=== PATIENT | male | born 1965 | race Caucasian/White ===

== ENCOUNTER 2020-12-27 17:51 | Outpatient (CLI) | payer OTHER, SELFPAY ==
--- NOTE | ~2020-12-27 | XR_ITS ---
EXAMINATION: XR chest 2V DATE: 12/27/2020 18:10 INDICATION: Left chest pain. TECHNIQUE: Frontal and lateral views of the chest were obtained. COMPARISON: None. FINDINGS: The chest demonstrates clear lungs without pneumonia, pleural effusion, or pneumothorax. Th e heart size is normal. There are changes of anterior fusion procedures in cervical spine. IMPRESSION: 1. No acute cardiopulmonary disease. Reviewed, dictated and finalized at location A.
== END 2020-12-27 17:52 | disposition home or self-care (01) ==
PROVIDERS: PCP Family Medicine; Visit Provider Family Medicine
DX: R07.89 Other chest pain (principal)
CPT/HCPCS: 71046

== ENCOUNTER 2022-05-23 09:58 | Emergency (ER) | payer OTHER, SELFPAY ==
[2022-05-23 10:20] VITALS: BP 135/92; PULSE 81; RESP 16; TEMP 37; O2SAT 99
--- NOTE | 2022-05-23 11:04 | ED.GENADULT ---
HPI - General Adult General Chief complaint: Eye Problems Stated complaint: rt pink eye Time Seen by Provider: 05/23/22 11:04 Source: patient Mode of arrival: ambulatory Limitations: no limitations History of Present Illness HPI narrative: 57-year-old male presented for complaint of right eye redness, irritation, and large amount of yellow drainage over the last 5 days. He endorses his daughter also has similar symptoms, was diagnosed with viral pinkeye. He states his symptoms have not improved after hers did. He denies vision changes, photophobia, foreign body sensation. does not wear contacts. Related Data Allergies Allergy/AdvReac Type Severity Reaction Status Date / Time Latex, Natural Rubber AdvReac painful Verified 05/23/22 11:05 Review of Systems Review of Systems: CONSTITUTIONAL: Denies body aches, fever, chills EYES:per HPI ENT: Denies rhinorrhea, congestion, sore throat, or otalgia. CARDIOVASCULAR: Denies chest pain, palpitations RESPIRATORY: Denies cough or dyspnea. GASTROINTESTINAL: Denies abdominal pain, nausea, vomiting, or diarrhea. SKIN: Denies rash, itching, or wounds. MUSCULOSKELETAL: Denies back pain, joint pain, or myalgia. NEUROLOGIC: Denies headache, numbness, tingling, or weakness. All systems reviewed & are unremarkable except as noted in HPI and below PMFSH Family History Family History Grandparent Diabetes mellitus Cerebrovascular accident Father Hypertension Family history of coronary artery disease Sibling Hypertension Acute myocardial infarction Family history of coronary artery disease Social History Social History Smoking status: Never smoker Alcohol intake: current Lack of Transportation: No Lack of Food: Never True Current Housing: I Have Housing Concerned About Future Housing: No Difficulty Paying Gas/Electric Bills: No Difficulty Paying for Meds: No Currently Unemployed: No Education: Bachelor's Degree Difficulty w/ Childcare or Family Care: No Comments At time of signature, I have reviewed and agree with nursing past medical, surgical, social and family history unless otherwise noted. Please see nursing chart for further information. There is no relevant family history pertinent to the presenting complaint Exam Narrative: GENERAL: Well-appearing HEAD: Normocephalic, atraumatic. EYES: Right conjunctival injection, mild right upper eye lid swelling. PERRLA, EOMI. Lid eversion showed no fb. ENT: Mucous membranes pink and moist. No rhinorrhea. TMs normal bilaterally. CHEST: Clear to auscultation. HEART: Regular rate and rhythm. ABDOMEN: Soft, nontender, nondistended SKIN: Warm, dry, no rash. Normal skin turgor. NEURO: No focal deficits. Alert and oriented x3 PSYCH: Normal affect. Course Course Emergency Course: Patient is aware of diagnosis, understands and agrees to treatment plan. Anticipatory guidance given. Patient agrees to follow-up as directed and is aware of reasons to seek care at the emergency department. Portions of this record may have been created with voice recognition software Level of Care: Express Care Visit Vital Signs Vital signs: Vital Signs Temperature 98.6 F 05/23/22 10:20 Pulse Rate 81 05/23/22 10:20 Respiratory Rate 16 05/23/22 10:20 Blood Pressure 135/92 H 05/23/22 10:20 Pulse Oximetry 99 05/23/22 10:20 Temperature 98.6 F 05/23/22 10:20 Pulse Rate 81 05/23/22 10:20 Respiratory Rate 16 05/23/22 10:20 Blood Pressure 135/92 H 05/23/22 10:20 Pulse Oximetry 99 05/23/22 10:20 Medical Decision Making MDM Narrative Medical decision making narrative: Advised supportive measures and signs/symptoms to go to the ER. Pt is appropriate for outpt treatment and f/u. Differential Diagnosis Differential Diagnosis: allergic reaction, urticaria, angioedema,
== END 2022-05-23 11:18 | disposition home or self-care (01) ==
PROVIDERS: Emergency Provider Nurse Practitioner Family; PCP Family Medicine
DX: H10.9 Unspecified conjunctivitis (principal)
CPT/HCPCS: 99213; G0463

== ENCOUNTER 2023-01-08 08:16 | Outpatient (CLI) | payer OTHER, SELFPAY ==
[2023-01-08 18:27] LABS: Alanine Aminotransferase 18 U/L (6-50); Albumin Level 3.9 g/dL (3.5-5.1); Alkaline Phosphatase 102 U/L (38-126); Anion Gap 8 mmol/L (8-16); Aspartate Amino Transferase 31 U/L (17-59); Bilirubin,Total 0.8 mg/dL (0.2-1.3); Blood Urea Nitrogen 16 mg/dL (9-20); Calcium 8.9 mg/dL (8.4-10.2); Carbon Dioxide 28 mmol/L (22-30); Chloride 103 mmol/L (98-107); Cholesterol 155 mg/dL (0-200); Estimated Glomerular Filt Rate > 60; Glucose 86 mg/dL (65-110); HDL Direct 37 mg/dL; Potassium 4.2 mmol/L (3.4-5.0); Sodium 139 mmol/L (137-145); Triglycerides 98 mg/dL (<150)
[2023-01-08 18:38] LABS: LDL Cholesterol Direct 100 mg/dL
[2023-01-08 18:56] LABS: Prostate Specific Antigen 5.1 ng/mL (< OR = 4.0)
== END 2023-01-08 08:17 | disposition home or self-care (01) ==
LOC: ANHGOSHLAB 08:18
PROVIDERS: PCP Family Medicine; Visit Provider Family Medicine
DX: E66.9 Obesity, unspecified (principal); E78.2 Mixed hyperlipidemia; I10 Essential (primary) hypertension; Z12.5 Encounter for screening for malignant neoplasm of prostate; Z68.33 Body mass index [BMI] 33.0-33.9, adult; Z79.899 Other long term (current) drug therapy
CPT/HCPCS: 36415; 80053; 80061; 84153; G0103

== ENCOUNTER 2023-01-18 08:18 | Outpatient (CLI) | payer OTHER, SELFPAY ==
[2023-01-18 19:17] LABS: Prostate Specific Antigen 3.9 ng/mL (< OR = 4.0)
== END 2023-01-18 08:19 | disposition home or self-care (01) ==
LOC: ANHGOSHLAB 08:19
PROVIDERS: PCP Family Medicine; Visit Provider Family Medicine
DX: R97.20 Elevated prostate specific antigen [PSA] (principal)
CPT/HCPCS: 36415; 84153

== ENCOUNTER 2023-03-22 08:33 | Outpatient (CLI) | payer OTHER, SELFPAY ==
[2023-03-24 19:41] LABS: PSA, Free 0.74 ng/mL; PSA, Total 3.1 ng/mL (<=4.0); Percent Free Prostate Spec Ag 24 % (>25)
== END 2023-03-22 08:34 | disposition home or self-care (01) ==
LOC: ANHGOSHLAB 08:34
PROVIDERS: PCP Family Medicine; Visit Provider Family Medicine
DX: R97.20 Elevated prostate specific antigen [PSA] (principal); E78.2 Mixed hyperlipidemia; E66.9 Obesity, unspecified; I10 Essential (primary) hypertension
CPT/HCPCS: 36415; 84153; 84154

== ENCOUNTER 2023-07-13 07:54 | Outpatient (CLI) | payer OTHER, SELFPAY ==
[2023-07-13 14:19] LABS: Hematocrit 48.7 % (42.0-52.0); Mean Corpuscular HGB Conc 30.8 g/dl (32-36); Mean Corpuscular Hemoglobin 27.6 pg (26-34); Mean Corpuscular Volume 89.5 fl (80-100); Mean Platelet Volume 9.7 fl (7.4-10.4); Platelet Count Result 321 k/mm3 (150-375); Red Blood Count 5.44 M/mm3 (4.6-6.20); Red Cell Distribution Width 14.3 % (11.5-14.5); White Blood Count 4.3 K/mm3 (4.5-10.0)
[2023-07-13 14:53] LABS: Alanine Aminotransferase 19 U/L (6-50); Albumin Level 3.7 g/dL (3.5-5.1); Alkaline Phosphatase 93 U/L (38-126); Anion Gap 2 mmol/L (8-16); Aspartate Amino Transferase 50 U/L (17-59); Bilirubin,Total 0.6 mg/dL (0.2-1.3); Blood Urea Nitrogen 20 mg/dL (9-20); Carbon Dioxide 30 mmol/L (22-30); Chloride 106 mmol/L (98-107); Cholesterol 169 mg/dL (0-200); Estimated Glomerular Filt Rate > 60; Glucose 70 mg/dL (65-110); HDL Direct 37 mg/dL; Potassium 4.3 mmol/L (3.4-5.0); Sodium 138 mmol/L (137-145); Triglycerides 105 mg/dL (<150)
[2023-07-13 15:03] LABS: LDL Cholesterol Direct 100 mg/dL
[2023-07-15 09:24] LABS: PSA, Free 0.65 ng/mL; PSA, Total 3.2 ng/mL (<=4.0); Percent Free Prostate Spec Ag 20 % (>25)
== END 2023-07-13 07:55 | disposition home or self-care (01) ==
PROVIDERS: PCP Family Medicine; Visit Provider Family Medicine
DX: E78.2 Mixed hyperlipidemia (principal); R97.20 Elevated prostate specific antigen [PSA]; I10 Essential (primary) hypertension; E66.9 Obesity, unspecified
CPT/HCPCS: 36415; 80053; 80061; 84153; 84154; 84443; 85027

== ENCOUNTER 2023-07-29 09:51 | Outpatient (CLI) | payer OTHER, SELFPAY ==
--- NOTE | 2023-07-29 10:08 | EST_ITS ---
Patient Info Name: Hebert Eason Age: 58 years : 1965 Gender: Male Ht: 69 in Wt: 218 lbs BSA: 2.23 m2 HR: 64 bpm BP: 132 / 86 mmHg Heart Rhythm: Sinus Rhythm Exam Date: 07/29/2023 10:21 AM Exam Location: Echo Lab Patient Status: Outpatient Admit Date: 07/29/2023 Staff Ordering Physician: Denae Chirinos Attending Provider: Denae Chirinos Exercise Technologist: Keesha Joshua CT Exercise Physician: Yonas Morrissey DO Exam Type: CA stress test treadmill Study Info Indications R07.89 - Other chest pain A treadmill exercise stress test was performed. Summary 1. 1. Negative Agapito exercise stress test for ischemic ST changes by ECG criteria. 2. 2. Good functional capacity, achieving 10 METs of workload. 3. 3. Appropriate HR response to exercise. 4. 4. Appropriate HR recovery at 1 minute post exercise. 5. 5. No imaging with stress testing. 6. 6. Patient informed of the above results. Protocol: Agapito Stress ECG Details Stage: REST Duration (min): 1 min : 13 sec Speed (mph): 0.0 Grade (%): 0 HR (bpm): 67 SBP (mmHg): 132 DBP (mmHg): 86 METS: --- Stage: REST Duration (min): 14 min : 34 sec Speed (mph): 0.0 Grade (%): 0 HR (bpm): 68 SBP (mmHg): 132 DBP (mmHg): 86 METS: --- Stage: STAGE 1 Duration (min): 1 min : 0 sec Speed (mph): 1.7 Grade (%): 10 HR (bpm): 94 SBP (mmHg): 132 DBP (mmHg): 86 METS: --- Stage: STAGE 1 Duration (min): 2 min : 0 sec Speed (mph): 1.7 Grade (%): 10 HR (bpm): 100 SBP (mmHg): 132 DBP (mmHg): 86 METS: --- Stage: STAGE 1 Duration (min): 3 min : 0 sec Speed (mph): 1.7 Grade (%): 10 HR (bpm): 96 SBP (mmHg): 182 DBP (mmHg): 86 METS: --- Stage: STAGE 2 Duration (min): 1 min : 0 sec Speed (mph): 2.5 Grade (%): 12 HR (bpm): 107 SBP (mmHg): 148 DBP (mmHg): 85 METS: --- Stage: STAGE 2 Duration (min): 2 min : 0 sec Speed (mph): 2.5 Grade (%): 12 HR (bpm): 111 SBP (mmHg): 152 DBP (mmHg): 83 METS: --- Stage: STAGE 2 Duration (min): 3 min : 0 sec Speed (mph): 2.5 Grade (%): 12 HR (bpm): 115 SBP (mmHg): 152 DBP (mmHg): 83 METS: --- Stage: STAGE 3 Duration (min): 1 min : 0 sec Speed (mph): 3.4 Grade (%): 14 HR (bpm): 126 SBP (mmHg): 138 DBP (mmHg): 84 METS: --- Stage: STAGE 3 Duration (min): 2 min : 0 sec Speed (mph): 3.4 Grade (%): 14 HR (bpm): 132 SBP (mmHg): 138 DBP (mmHg): 84 METS: --- Stage: STAGE 3 Duration (min): 3 min : 0 sec Speed (mph): 3.4 Grade (%): 14 HR (bpm): 138 SBP (mmHg): 167 DBP (mmHg): 87 METS: --- Stage: STAGE 4 Duration (min): 0 min : 5 sec Speed (mph): 4.2 Grade (%): 16 HR (bpm): 139 SBP (mmHg): 167 DBP (mmHg): 87 METS: --- Stage: RECOVERY Duration (min): 0 min : 55 sec Speed (mph): 0.0 Grade (%): 0 HR (bpm): 112 SBP (mmHg): 167 DBP (mmHg): 87 METS:
== END 2023-07-29 09:52 | disposition home or self-care (01) ==
LOC: ANHCARD 09:52
PROVIDERS: PCP Family Medicine; Visit Provider Nurse Practitioner
DX: R07.9 Chest pain, unspecified (principal)
CPT/HCPCS: 93017

== ENCOUNTER 2023-08-02 10:56 | Outpatient (CLI) | payer OTHER, SELFPAY ==
--- NOTE | ~2023-08-02 | CT_ITS ---
EXAMINATION: CT sinus wo con DATE: 08/02/2023 11:14 INDICATION: Chronic sinusitis, unspecified. TECHNIQUE: Computed tomography (CT) of the paranasal sinuses was performed without intravenous contra st. Iterative reconstruction technique was employed. The dose-length product was 311.14 mGy-cm. COMPARISON: None FINDINGS: There is mild mucosal thickening in left frontal sinus. There is near complete opacificatio n of right frontal recess. There is moderate mucosal thickening in the ethmoid sinuses and mild mucos al thickening in the maxillary and sphenoid sinuses. There is rightward deviation of the nasal septum . There are bilateral Luiz cells. There is narrowing of the ostiomeatal units, which remain patent. IMPRESSION: 1. Mucosal thickening in the paranasal sinuses. 2. Rightward deviation of the nasal septum. Reviewed, dictated and finalized at location A.
== END 2023-08-02 10:57 | disposition home or self-care (01) ==
PROVIDERS: PCP Family Medicine; Visit Provider Otolaryngology
DX: J34.2 Deviated nasal septum (principal); J34.89 Other specified disorders of nose and nasal sinuses
CPT/HCPCS: 70486

== ENCOUNTER 2023-10-12 00:38 | Day surgery (SDC) | payer OTHER, SELFPAY ==
[2023-10-04 10:38] VITALS: BMI 33.0
--- NOTE | 2023-10-04 11:10 | PC.NURSE ---
Report to the Outpatient Waiting Room, entrance under the green pavilion located off [facility], at time _0645 on date __10/12/23 . Planned Procedure Time: _0845 . Time changes happen often and if your time is changed the preop area will call you the afternoon before. - You and your visitor will be asked to self-screen and do not enter if you have any COVID symptoms. - A mask is optional within the hospital at this time. Patients may have clear liquids (water, carbonated beverages, clear teas, apple juice) until 3 hours prior to surgery with a maximum of 20 ounces. - No food from midnight until time of surgery - Infants may have breast milk until 4 hours before surgery, infant formula 6 hours prior to surgery. - Children will be allowed to drink immediately following surgery. If applicable, please bring a bottle or sippy cup to assist with drinking. Juice, water, soda, and popsicles are readily available. For infants on formula, please bring formula the day of surgery. Pacifiers are allowed. Take the following medications with a SIP of water the morning of surgery: __None DO NOT STOP ANY OF YOUR OTHER PRESCRIPTION MEDICATIONS PRIOR TO SURGERY ?EXCEPT THE FOLLOWING Medications to discontinue per physician _N/A Date to take last dose__N/A Please no make-up, nail angolan, hairspray, perfume, deodorant, or body powder the day of surgery. No jewelry (including any body piercings) or valuables the day of surgery, leave them at home. Please take a shower or bath the night before, or the morning of, surgery with an antibacterial soap. Wear comfortable, loose fitting clothing. Children are encouraged to wear pajamas. - Jewelry must be removed prior to entering the operating room. Rings and piercings that are not removed may be cut off. - The hospital will not accept responsibility for valuables. - Please leave all valuables, including medications, at home the day of surgery. If you are going home after surgery, a licensed rickshaw driver must drive you home. - NO public transportation without another adult if you receive anesthesia. - We recommend that an adult stay with you for 24 hours following discharge. - We also recommend that you do not drive, make important decision, drink alcoholic beverages, or take any drugs that were not prescribed by your health care provider for at least 24 hours after your discharge time. For Pediatric surgeries, we recommend two adults accompany the child home. Follow any additional instructions given to you from your surgeon. If you or anyone in your household have experienced Covid symptoms in the past week, please notify your surgeon or the nurse liaison at the phone number below for possible testing. Telephone instructions given to __Hebert___and asked if any additional questions and then verbalized understanding. Patient advised to call surgeon office or pre surgery nurse liaison [phone] if any additional questions.
--- NOTE | 2023-10-11 18:00 | PM.IMHP ---
H&P: HPI History of Present Illness Date/Time: 10/11/23 18:00 Chief Complaint: chronic sinusitis septal deviation turbinate hypertrophy Narrative: planned procedure Review of Systems Review of Systems: All systems reviewed & are unremarkable except as noted in HPI and below [facility] Family History Family History Grandparent Diabetes mellitus Cerebrovascular accident Father Hypertension Family history of coronary artery disease Sibling Hypertension Acute myocardial infarction Family history of coronary artery disease Social History Social History Smoking status: Never smoker Alcohol intake: current Drinks per week: 1 Alcohol use details: weekends Substance use: never Substance use type: does not use Lack of Transportation: No Lack of Food: Never True Current Housing: I Have Housing Concerned About Future Housing: No Difficulty Paying Gas/Electric Bills: No Difficulty Paying for Meds: No Currently Unemployed: No Education: Bachelor's Degree Difficulty w/ Childcare or Family Care: No Living arrangements: with family Occupation/Education: occupation Gender identity (if verbalized by the patient): Male Sexual Orientation (if Verbalized by the Patient): Straight or Heterosexual Spiritual care concerns: No Agree to blood products: Yes Meds Home Medications and Allergies Home Medications Medication Instructions Recorded Confirmed Type azelastine 137 mcg (0.1 %) nasal 1 - 2 spray intranasal Q12H #30 mL 12/07/22 10/04/23 Rx spray aerosol simvastatin 5 mg tablet See Rx Instructions .Route 06/08/23 10/04/23 Rx .COMPLEX #90 tabs famotidine 10 mg tablet 10 mg PO DAILY PRN Indigestion 07/14/23 10/04/23 History (Zantac-360 (famotidine)) cetirizine 10 mg tablet (Zyrtec) 10 mg PO DAILY PRN Allergy Symptoms 10/04/23 10/04/23 History fluticasone propionate 50 1 spray intranasal DAILY PRN 10/04/23 10/04/23 History mcg/actuation nasal Allergy Symptoms spray,suspension losartan 25 mg tablet 25 mg PO DAILY 10/04/23 10/04/23 History Allergies Allergy/AdvReac Type Severity Reaction Status Date / Time Latex, Natural Rubber AdvReac Intermediate painful Verified 10/04/23 10:33 Exam Narrative: chronic appearing sinuses turbinate hypertrophy septal deviation Assessment and Plan Assessment and plan (1) Nasal septal deviation: Code(s): J34.2 - Deviated nasal septum Status: Acute Assessment and Plan: plan OR endoscopic assisted septoplasty inferior turbinate reduction bilaterally with outfracture possible bilateral sinus surgery will focus on the right side were the most obstructed polypoid tissue likely is will not do frontals will not do sphenoids. If anything likely due right-sided maxillary antrostomy image guided endoscopic and anterior ethmoidectomy. Only feel looks severely diseased intraoperatively. Risks discussed bleeding infection damage to surrounding structures septal perforation need further procedures failure to resolve symptoms CSF leak brain brain damage change in vision total blindness time-out for time-out small naris and necrotic use postoperative section postoperative bleeding. Need for further sinus surgery. Patient voiced understanding of these risks and agreed. (2) Chronic sinusitis: Code(s): J32.9 - Chronic sinusitis, unspecified Status: Acute (3) Hypertrophy of both inferior nasal turbinates: Code(s): J34.3 - Hypertrophy of nasal turbinates Status: Acute Plan plan OR
[2023-10-12] VITALS (8 sets, daily range): BP systolic 122–144; BP diastolic 83–92; PULSE 63–98; RESP 12–22; TEMP 36.1–36.7; O2SAT 94–98; BMI 32.8
[2023-10-12] MEDS: LACTATED RINGERS 1,000 ML 30 ML IV CONT ×2 (07:15→11:47)
--- NOTE | 2023-10-12 07:16 | WPDHPUPDATE1 ---
History and Physical Update Update Date/Time: 10/12/23 07:16 History and Physical has been reviewed, including an updated exam of the patient. There are NO changes in the patient's condition. Risks, benefits, and alternatives have been discussed and questions answered. Patient agrees to proceed with procedure. Plan is septoplasty, turbinate reduction inferior with outfracture bilateral, and possible bilateral image guided endoscopic sinus surgery.
[2023-10-12] MEDS: ACETAMINOPHEN 500 MG TABLET 1000 MG PO (07:20)
--- NOTE | 2023-10-12 07:52 | WPDANESEPPF ---
Anes - Initial Pre Proc Eval Procedure: Operation Date: 10/12/23 07:45 Proposed Procedures p Image Guided Endoscopic Bilateral Maxillary Antrostomy, Bilateral Total Ethmoidectomy, Bilateral Sphenoidotomy, Bilateral Frontal Sinusotomy, Bilateral Inferior Turbinate Reduction with Outfracture, - Jorge Scott MD s Endoscopic Septoplasty - Jorge Scott MD Date/Time: 10/12/23 07:52 Surgeon: Jorge Scott MD Pre Op Diagnosis: chronic sinusitis,septal deviation Patient Data Age: 58 Gender: M Height: 1.75 m Weight: 100.8 kg Last Vital Signs Temp 97.0 F L 10/12/23 06:15 Pulse 63 10/12/23 06:15 Resp 14 10/12/23 06:15 BP 141/85 H 10/12/23 06:15 Pulse Ox 98 10/12/23 06:15 O2 Del Method Room Air 10/12/23 06:15 Allergies Allergy/AdvReac Type Severity Reaction Status Date / Time Latex, Natural Rubber AdvReac Intermediate painful Verified 10/12/23 07:28 Home Medications Medication Instructions Recorded Confirmed Type azelastine 137 mcg (0.1 %) nasal 1 - 2 spray intranasal Q12H #30 mL 12/07/22 10/04/23 Rx spray aerosol simvastatin 5 mg tablet See Rx Instructions .Route 06/08/23 10/04/23 Rx .COMPLEX #90 tabs famotidine 10 mg tablet 10 mg PO DAILY PRN Indigestion 07/14/23 10/04/23 History (Zantac-360 (famotidine)) cetirizine 10 mg tablet (Zyrtec) 10 mg PO DAILY PRN Allergy Symptoms 10/04/23 10/04/23 History fluticasone propionate 50 1 spray intranasal DAILY PRN 10/04/23 10/04/23 History mcg/actuation nasal Allergy Symptoms spray,suspension losartan 25 mg tablet 25 mg PO DAILY 10/04/23 10/04/23 History Patient hx anesthesia problems: none Family hx anesthesia problems: none Results Review: All pre-operative results and documents have been reviewed as part of the pre-operative evaluation. [facility] Family History Family History Grandparent Diabetes mellitus Cerebrovascular accident Father Hypertension Family history of coronary artery disease Sibling Hypertension Acute myocardial infarction Family history of coronary artery disease Social History Social History Smoking status: Never smoker Alcohol intake: current Drinks per week: 1 Alcohol use details: weekends Substance use: never Substance use type: does not use Lack of Transportation: No Lack of Food: Never True Current Housing: I Have Housing Concerned About Future Housing: No Difficulty Paying Gas/Electric Bills: No Difficulty Paying for Meds: No Currently Unemployed: No Education: Bachelor's Degree Difficulty w/ Childcare or Family Care: No Living arrangements: with family Occupation/Education: occupation Gender identity (if verbalized by the patient): Male Sexual Orientation (if Verbalized by the Patient): Straight or Heterosexual Spiritual care concerns: No Agree to blood products: Yes Anes - Eval Final PreProcedure Day of Procedure 10/12/23 07:52 Patient weight: obese Heart: regular rate and rhythm Lungs: clear to auscultation Airway: Mallampati scale class II and special considerations (L upper incisor w large chip. Hx of C spine fusion w nml mobility. ) Neurological: alert and oriented Last oral intake: >/= 8 hours ASA classification: II Emergent: no Anesthetic plan: proceed Anesthesia type and monitoring: general ETT and standard monitoring Results Review: All pre-operative results and documents have been reviewed as part of the pre-operative evaluation. Stress test 07/2023 without ischemia by EKG criteria. Informed Consent: The patient's anesthetic plan and its attendant risks and benefits were discussed with the patient/family/POA. Questions were solicited and answers provided to the satisfaction of the patient/family/POA.
[2023-10-12] MEDS: ceFAZolin 2 GM/D5W 50 ML 2 GM/50 ML BAG IVPB (08:12)
[2023-10-12] MEDS: OXYMETAZOLINE HCL 0.05% NAS 15 ML BTL (*BKC) 1 SPRAY NASAL (08:50)
[2023-10-12] MEDS: LIDO 1%/EPINEPHRINE 1:100,000 50 ML VIAL INFILTRATE (08:50)
--- NOTE | 2023-10-12 11:29 | W.PM.PROC2 ---
Procedure Note - Detailed Date of Procedure 10/12/23 Pre-op Diagnosis chronic sinusitis,septal deviation , turbinate hypertrophy Post-op Diagnosis Same Procedure Performed endoscopic assisted septoplasty inferior turbinate reduction outfracture Surgeon Jorge Scott MD Anesthesia General Indications see above Findings severe right septal deviation very large turbinates patient had a severely lateralized right middle turbinate as obstructing all the outflow the menu medialized this all the mucus drained. Same on the left side with the left side was medialized a stating that position the right side was a little bit more tricky will discussed in the procedure note. Description of Procedure Patient identified consent verified preop. Patient brought operating. Time-out performed. General anesthesia induced endotracheal tube secured. Patient prepped draped position image guidance initiated confirmed procedure confirmed 2nd time-out performed. Afrin-soaked pledgets placed for 5 minutes then removed. Total 18 cc 1% lidocaine 1 100,000 parts epinephrine checked bilateral nasal septum inferior turbinates [place] incision made left-sided left nasal septal flap elevated with 7 Swedish suction right nasal septal flap elevated after crossing over the septum with osteotome. Deviated septum removed Jorge Kerrton forceps Bisi forceps and osteotome. Any bleeding controlled with FloSeal and pledgets. Amos incision closed with 4 interrupted 5 0 fast gut sutures. Now at this time you could see the issue the right middle turbinate was severely lateralized. When you moved it off of the orbit lateral nasal wall the all the mucus began to drain and normal fashion the sinus openings themselves looked okay it was a middle turbinate that appeared abnormal. Same thing with the left middle turbinate appeared much more normal but was lateralize medialized the left middle turbinate stated medial position. Turbinates reduced after stab incision with 15 blade with the Milnor 2.5 mm microdebrider they were then outfractured. FloSeal placed inside those. One tear on the right middle inferior turbinate. So I had to quilt the septum in order to get the middle turbinates to stay medialized. Monsalve splints were then placed sutured anteriorly using 3-0 mattress nylon suture. Total blood loss 25 cc. Everything looks good as long as it stays in place. No complications care the patient given Anesthesiology. I performed all dictated portions of procedure. Patient taken to PACU. Estimated Blood Loss 25 Drains No Packing No Pathology None sent Complications No immediate complications Condition Stable Disposition PACU [facility] Billing Surgery - Charge Forward: Surgery Billing
[2023-10-12] MEDS: oxyCODONE HCL (*CRX) 5 MG TAB IR PO (12:04)
== END 2023-10-12 13:18 | disposition home or self-care (01) ==
PROVIDERS: PCP Family Medicine; Visit Provider Otolaryngology
PROC: (CPT 30520; principal; 2023-10-12 07:45)
PROC: (CPT 30520; 2023-10-12 07:45)
DX: J34.3 Hypertrophy of nasal turbinates (principal); J34.2 Deviated nasal septum; J32.9 Chronic sinusitis, unspecified; E66.9 Obesity, unspecified; Z68.32 Body mass index [BMI] 32.0-32.9, adult
CPT/HCPCS: 30520; 30140; A9270; J0690; J1100; J1170; J1596; J2250; J2405; J2704; J3010; J7050; J7120

== ENCOUNTER 2024-01-12 09:02 | Outpatient (CLI) | payer OTHER, SELFPAY ==
[2024-01-12 13:17] LABS: Hematocrit 48.5 % (42.0-52.0); Hemoglobin 15.6 g/dL (14.0-18.0); Mean Corpuscular HGB Conc 32.2 g/dl (32-36); Mean Corpuscular Hemoglobin 28.3 pg (26-34); Mean Platelet Volume 9.9 fl (7.4-10.4); Platelet Count Result 319 k/mm3 (150-375); Red Blood Count 5.51 M/mm3 (4.6-6.20); Red Cell Distribution Width 13.7 % (11.5-14.5)
[2024-01-12 13:48] LABS: Alanine Aminotransferase 17 U/L (6-50); Alkaline Phosphatase 100 U/L (38-126); Anion Gap 10 mmol/L (4-12); Aspartate Amino Transferase 61 U/L (17-59); Bilirubin,Total 0.8 mg/dL (0.2-1.3); Blood Urea Nitrogen 21 mg/dL (9-20); Calcium 8.9 mg/dL (8.4-10.2); Carbon Dioxide 25 mmol/L (22-30); Chloride 104 mmol/L (98-107); Cholesterol 147 mg/dL (0-200); Estimated Glomerular Filt Rate > 60; Glucose 87 mg/dL (65-110); HDL Direct 36 mg/dL; Potassium 4.1 mmol/L (3.4-5.0); Sodium 139 mmol/L (137-145); Triglycerides 71 mg/dL (<150)
[2024-01-12 14:02] LABS: LDL Cholesterol Direct 86 mg/dL
[2024-01-17 14:23] LABS: PSA, Free 0.8 ng/mL; PSA, Total 3.7 ng/mL (< OR = 4.0); Percent Free Prostate Spec Ag 22 % (calc) (>25)
== END 2024-01-12 09:03 | disposition home or self-care (01) ==
LOC: ANHGOSHLAB 09:04
PROVIDERS: PCP Family Medicine; Visit Provider Family Medicine
DX: R97.20 Elevated prostate specific antigen [PSA] (principal); I10 Essential (primary) hypertension; Z79.899 Other long term (current) drug therapy; E78.2 Mixed hyperlipidemia; E66.9 Obesity, unspecified
CPT/HCPCS: 36415; 80053; 80061; 84153; 84154; 84443; 85027

== ENCOUNTER 2024-03-08 10:18 | Outpatient (CLI) | payer OTHER, SELFPAY ==
[2024-03-08 16:51] LABS: Hematocrit 48.2 % (42.0-52.0); Hemoglobin 15.4 g/dL (14.0-18.0); Mean Corpuscular Hemoglobin 28.1 pg (26-34); Mean Corpuscular Volume 87.8 fl (80-100); Mean Platelet Volume 9.7 fl (7.4-10.4); Platelet Count Result 313 k/mm3 (150-375); Red Blood Count 5.49 M/mm3 (4.6-6.20); Red Cell Distribution Width 13.5 % (11.5-14.5); White Blood Count 5.3 K/mm3 (4.5-10.0)
== END 2024-03-08 10:19 | disposition home or self-care (01) ==
LOC: ANHGOSHLAB 10:19
PROVIDERS: PCP Family Medicine; Visit Provider Family Medicine
DX: D72.829 Elevated white blood cell count, unspecified (principal)
CPT/HCPCS: 36415; 85027

== ENCOUNTER 2024-07-17 08:42 | Outpatient (CLI) | payer OTHER, SELFPAY ==
--- OUTSIDE RECORDS SUMMARY | 2024-07-17 09:08 | XMS_ITS | Patient Health Summary ---
Author Organization [facility] [employer] Address [address] [place] [address] Care Team Providers Care Drilling Supervisor Name Role Phone Sonny Harding MD Primary Care Provider Note from [facility],non-owned Affiliates and Associated Physician Practices is amultiple site organization consisting of ambulatory clinics and hospital sitesin [place], [place], [place] and [place]. This disclosure is being madepursuant to the Care Everywhere program and may not contain all information available regarding this patient. Last updated 18.[facility] [employer] Allergies No known active allergies Medications * Be aware that medications may not be up to date on this document. Alwaysverify current medications with the patient. * simvastatin (ZOCOR) 20 MG tablet Take 20 mg by mouth at bedtime * benzonatate (TESSALON) 200 MG capsule(Started 07/25/2017) Take 1 capsule by mouth 3 times daily as needed for Cough Social History Tobacco Use Types Packs/Day Years Used Date Smoking Tobacco: Never Sex and Gender Information Value Date Recorded Sex Assigned at Not on file Gender Identity Not on file Sexual Orientation Not on file Last Filed Vital Signs Vital Sign Reading Time Taken Comments Blood Pressure 134/74 07/25/2017 11:58 AM [employer] Pulse 83 07/25/2017 11:58 AM [employer] Temperature 37.2 C (99 F) 07/25/2017 11:58 AM [employer] Respiratory Rate - - Oxygen Saturation 96% 07/25/2017 11:58 AM [employer] Inhaled Oxygen Concentration - - Weight 96.6 kg (213 lb) 07/25/2017 11:58 AM [employer] Height 177.2 cm (5' 9.75 ) 07/25/2017 11:58 AM [facility] Body Mass Index 30.78 07/25/2017 11:58 AM [employer] Care Teams Drilling Supervisor Relationship Specialty Start Date End Date Sonny Harding MD [address] [place] [address] PCP - General Family Medicine 07/25/17
--- OUTSIDE RECORDS SUMMARY | 2024-07-17 09:08 | XMS_ITS | Referral Summary ---
Author Organization [facility] [address] [place] Address [address] [place] [id number] Care Team Providers Care Telephone Collector Name Role Phone Macrina Rosado Primary Care Provider +1- [phone] Allergies No known active allergies Medications lisinopriL (PRINIVIL,ZESTR IL) 5 mg tablet Take 5 mg by mouth daily 04/29/2021 Active simvastatin (ZOCOR) 20 mg tablet Take 20 mg by mouth nightly Active Active Problems No known active problems Social History Tobacco Use Types Packs/Day Years Used Date Smoking Tobacco: Never Assessed Sex and Gender Information Value Date Recorded Sex Assigned at Not on file Legal Sex Male 9:22 AM MANAGER PULMONARY Gender Identity Not on file Sexual Orientation Not on file Last Filed Vital Signs Vital Sign Reading Time Taken Comments Blood Pressure 137/93 07/24/2021 8:54 AM MANAGER PULMONARY Pulse 82 07/24/2021 8:54 AM MANAGER PULMONARY Temperature 36.8 C (98.3 F) 07/24/2021 8:54 AM MANAGER PULMONARY Respiratory Rate 16 07/24/2021 8:54 AM MANAGER PULMONARY Oxygen Saturation 96% 07/24/2021 8:54 AM MANAGER PULMONARY Inhaled Oxygen Concentration - - Weight 102.5 kg (226 lb) 07/24/2021 8:54 AM MANAGER PULMONARY Height 175.3 cm (5' 9 ) 07/24/2021 8:54 AM MANAGER PULMONARY Body Mass Index 33.37 07/24/2021 8:54 AM MANAGER PULMONARY Plan of Treatment Not on file Insurance [employer] [id number] Care Teams Telephone Collector Relationship Specialty Start Date End Date Macrina Rosado DO PCP - General Family Medicine 07/24/21
--- OUTSIDE RECORDS SUMMARY | 2024-07-17 09:08 | XMS_ITS | Clinical Summary ---
Author Organization [facility] [address] [place] Address [address] [place] [address] Care Team Providers Care Credit Collections Clerk Name Role Phone Macrina Rosado Primary Care Provider +1- [phone] Allergies No known active allergies Medications lisinopriL [...] on file Legal Sex Male 9:22 AM ROLL FORM OPERATOR Gender Identity Not on file Sexual Orientation Not on file Obstetrics History Last Filed Vital Signs Vital Sign Reading Time Taken Comments Blood Pressure 137/93 07/24/2021 8:54 AM ROLL FORM OPERATOR Pulse 82 07/24/2021 8:54 AM ROLL FORM OPERATOR Temperature 36.8 C (98.3 F) 07/24/2021 8:54 AM ROLL FORM OPERATOR Respiratory Rate 16 07/24/2021 8:54 AM ROLL FORM OPERATOR Oxygen Saturation 96% 07/24/2021 8:54 AM ROLL FORM OPERATOR Inhaled Oxygen Concentration - - Weight 102.5 kg (226 lb) 07/24/2021 8:54 AM ROLL FORM OPERATOR Height 175.3 cm (5' 9 ) 07/24/2021 8:54 AM ROLL FORM OPERATOR Body Mass Index 33.37 07/24/2021 8:54 AM ROLL FORM OPERATOR Plan of Treatment Health Maintenance Due Date Last Done Comments Colon Cancer Screening-Colonoscopy 1966 Depression Screening 1966 Hepatitis C Screening 1966 Prostate Cancer Screening-PSA 1966 DTaP/Tdap/Td Vaccine (1 - Tdap) 1977 Hepatitis B Screening 02/29/1984 Regular Well Visit/Exam 18-64 02/29/1984 Zoster Vaccine (1 of 2) 02/29/2016 Covid-19 Vaccine (3 - 2023-2 5 season) 2024 04/22/2021, 08/01/2020 Influenza Vaccine (#1) 2024 03/10/2018 Pneumococcal vaccine <65 Aged Out No longer eligible based on patient's age to complete this topic Insurance [facility] [id number] Care Teams Credit Collections Clerk Relationship Specialty Start Date End Date Macrina Rosado DO PCP - General Family Medicine 07/24/21
--- OUTSIDE RECORDS SUMMARY | 2024-07-17 09:08 | XMS_ITS | Referral Summary ---
Author Organization [facility] Address [address] [facility] [place] [address] Care Team Providers Care Facilities Planner Name Role Phone Sonny Harding MD Primary Care Provider [phone] Source Comments [facility],non-owned Affiliates and Associated Physician Practices is amultiple site organization consisting of ambulatory clinics and hospital sitesin [place], [place], [place]. This disclosure is being madepursuant to the Care Everywhere program and may not contain all information available regarding this patient. Last updated 18.[facility] Allergies No known active allergies Medications * Be aware that medications may not be up to date on this document. Alwaysverify current medications with the patient. Medication Sig Dispensed Refills Start Date End Date Status simvastatin (ZOCOR) 20 MG tablet Take 20 mg by mouth at bedtime Active benzonatate (TESSALON) 200 MG capsule Take 1 capsule by mouth 3 times daily as needed for Cough 30 capsule 07/25/2017 Active Social History Tobacco Use Types Packs/Day Years Used Date Smoking Tobacco: Never Sex and Gender Information Value Date Recorded Sex Assigned at Not on file Gender Identity Not on file Sexual Orientation Not on file Last Filed Vital Signs Vital Sign Reading Time Taken Comments Blood Pressure 134/74 07/25/2017 11:58 AM MARKETING CONTENT COORDINATOR Pulse 83 07/25/2017 11:58 AM MARKETING CONTENT COORDINATOR Temperature 37.2 C (99 F) 07/25/2017 11:58 AM MARKETING CONTENT COORDINATOR Respiratory Rate - - Oxygen Saturation 96% 07/25/2017 11:58 AM MARKETING CONTENT COORDINATOR Inhaled Oxygen Concentration - - Weight 96.6 kg (213 lb) 07/25/2017 11:58 AM MARKETING CONTENT COORDINATOR Height 177.2 cm (5' 9.75 ) 07/25/2017 11:58 AM Bell CASTILLO Body Mass Index 30.78 07/25/2017 11:58 AM MARKETING CONTENT COORDINATOR Plan of Treatment Not on file Care Teams Facilities Planner Relationship Specialty Start Date End Date Sonny Harding MD [address] [place] [address] PCP - General Family Medicine 07/25/17
--- OUTSIDE RECORDS SUMMARY | 2024-07-17 09:08 | XMS_ITS | Clinical Summary ---
Author Organization [facility] Address [address] [place] [address] Care Team Providers Care Industrial Waste Treatment Technician Name Role Phone Sonny Harding MD Primary Care Provider [phone] Source Comments [facility],non-owned Affiliates and Associated Physician Practices is amultiple site organization consisting of ambulatory clinics and hospital sitesin [place], [place], [place] and [place]. This disclosure is being madepursuant to the Care Everywhere program and may not contain all information available regarding this patient. Last updated 18.[facility] Allergies No known active allergies Medications * [...] Comments Blood Pressure 134/74 07/25/2017 11:58 AM HIDE PULLER Pulse 83 07/25/2017 11:58 AM HIDE PULLER Temperature 37.2 C (99 F) 07/25/2017 11:58 AM HIDE PULLER Respiratory Rate - - Oxygen Saturation 96% 07/25/2017 11:58 AM HIDE PULLER Inhaled Oxygen Concentration - - Weight 96.6 kg (213 lb) 07/25/2017 11:58 AM HIDE PULLER Height 177.2 cm (5' 9.75 ) 07/25/2017 11:58 AM Bell CASTILLO Body Mass Index 30.78 07/25/2017 11:58 AM HIDE PULLER Plan of Treatment Health Maintenance Due Date Last Done Comments COLOGUARD (AGES 45-75) - COL ON CA SCREENING 1966 COLON MONITORING 1966 COLONOSCOPY - COLON CA SCREENING 1966 CT COLONOGRAPHY - COLON CA SCREENING 1966 Colorectal Cancer Screening 1966 FIT - COLON CA SCREENING 1966 FLEX SIG - COLON CA SCREENING 1966 HIV SCREENING 1981 HEPATITIS C SCREENING 02/24/1984 DTAP/TDAP/TD VACCINES (1 - Tdap) 1985 HEPATITIS B VACCINE (1 of 3 - 19+ 3-dose series) 1985 PNEUMOCOCCAL VACCINE 50+ (1 of 1 - PCV) 02/29/2016 ZOSTER VACCINE (1 of 2) 02/29/2016 SCREENING FOR DIABETES 07/25/2017 COVID-19 VACCINE ( - 2023-2 5 season) 2024 INFLUENZA VACCINE (#1) 2024 DEPRESSION SCREENING 05/24/2024 HIB VACCINE Aged Out No longer eligi ble based on patient's age to complete this topic HPV VACCINE Aged Out No longer eligi ble based on patient's age to complete this topic MENINGOCOCCAL (Group B) VACCINE Aged Out No longer eligible based on patient's age to complete this topic MENINGOCOCCAL VACCINE Aged Out No jena darrion eligible based on patient's age to complete this topic PNEUMOCOCCAL VACCINE Aged Out No long er eligible based on patient's age to complete this topic Care Teams Industrial Waste Treatment Technician Relationship Specialty Start Date End Date Sonny Harding MD [address] [place] [address] PCP - General Family Medicine 07/25/17
[2024-07-17 12:28] LABS: Alanine Aminotransferase 22 U/L (6-50); Albumin Level 3.9 g/dL (3.5-5.1); Alkaline Phosphatase 121 U/L (38-126); Anion Gap 7 mmol/L (4-12); Aspartate Amino Transferase 32 U/L (17-59); Bilirubin,Total 0.6 mg/dL (0.2-1.3); Blood Urea Nitrogen 18 mg/dL (9-20); Calcium 9.3 mg/dL (8.4-10.2); Carbon Dioxide 27 mmol/L (22-30); Chloride 106 mmol/L (98-107); Cholesterol 183 mg/dL (0-200); Estimated Glomerular Filt Rate > 60; Glucose 78 mg/dL (65-110); HDL Direct 42 mg/dL; Potassium 4.4 mmol/L (3.4-5.0); Sodium 140 mmol/L (137-145); Triglycerides 96 mg/dL (<150)
[2024-07-17 12:35] LABS: Eosinophils Absolute Auto 0.4 K/mm3 (0-0.3); Eosinophils Percent Auto 9.8 % (0-4.4); Hemoglobin 15.7 g/dL (14.0-18.0); Immature Granulocyte Absolute 0.01 K/mm3 (0.00-0.031); Immature Granulocyte Percent A 0.2 % (0-0.5); Lymphocytes Absolute Auto 1.01 K/mm3 (0.9-3.2); Lymphocytes Percent Auto 24.7 % (18.3-44.2); Mean Corpuscular Hemoglobin 28.6 pg (26-34); Mean Corpuscular Volume 89.3 fl (80-100); Monocytes Absolute Auto 0.4 K/mm3 (0.1-0.6); Monocytes Percent Auto 9.8 % (2.6-8.5); Neutrophils Absolute Auto 2.2 K/mm3 (1.3-6.7); Neutrophils Percent Auto 54.5 % (45.5-73.1); Platelet Count Result 371 k/mm3 (150-375); Red Blood Count 5.49 M/mm3 (4.6-6.20); Red Cell Distribution Width 13.7 % (11.5-14.5); White Blood Count 4.1 K/mm3 (4.5-10.0)
[2024-07-17 12:45] LABS: LDL Cholesterol Direct 110 mg/dL
[2024-07-17 13:09] LABS: Prostate Specific Antigen 6.9 ng/mL (< OR = 4.0)
[2024-07-18 09:39] LABS: Free Prostate Spec Ag 5.83 ng/mL (< OR = 4.00)
== END 2024-07-17 08:43 | disposition home or self-care (01) ==
PROVIDERS: PCP Nurse Practitioner; Visit Provider Family Medicine
DX: R97.20 Elevated prostate specific antigen [PSA] (principal); I10 Essential (primary) hypertension; E78.2 Mixed hyperlipidemia; E66.9 Obesity, unspecified; Z79.899 Other long term (current) drug therapy
CPT/HCPCS: 36415; 80053; 80061; 84153; 84443; 85025; G0103

== ENCOUNTER 2024-08-28 00:43 | Day surgery (SDC) | payer OTHER, SELFPAY ==
[2024-08-17 13:57] VITALS: BMI 33.2
--- OUTSIDE RECORDS SUMMARY | 2024-08-28 00:46 | XMS_ITS | Referral Summary ---
Author Organization [facility] [address] [place] Address [address] [place] [id number] Care Team Providers Care Press Set Up Person Name Role Phone Macrina Rosado Primary Care Provider [phone]- [phone] Encounters Date Type Department Care Team Description 08/26/2024 10:10 AM CDT - 08/26/2024 11:59 PM CDT Hospital Encounter [facility] [address] [place] [address] Elevated PSA Discharge Disposition: Discharge to home or self care 08/19/2024 Results Follow-Up [facility] ([facility]) - [facility] Urology [address] [place] [address] Advanced Medicine 11th [place] [address] [place] [address] Marisol Hernandez MD 08/18/2024 7:59 AM CDT - 08/18/2024 11:59 PM CDT Hospital Encounter [address] [address] Elevated PSA Discharge Disposition: Discharge to home or self care 08/18/2024 8:00 AM CDT Lab [facility] Outpatient Lab at [address] [address] Elevated PSA (Primary Dx) 07/27/2024 12:51 PM SALVAGE LABORER - 07/27/2024 11:59 PM SALVAGE LABORER Hospital Encounter [facility] [address] [place] [address] Elevated PSA Discharge Disposition: Discharge to home or self care 07/27/2024 11:40 AM SALVAGE LABORER Office Visit [facility] Advanced [facility] ([facility]) - [facility] Urology [address] [facility] 11th [place] [phone] Marisol Hernandez MD Elevated PSA (Primary Dx) 07/21/2024 Telephone [facility] Advanced [facility]) - [facility] Urology [address] [place] [address] 11th [place] [id number] Marisol Hernandez MD 07/21/2024 Orders Only [facility]) - [facility] Urology [address] [place] [address] [place] [id number] Marisol Hernandez MD Elevated PSA (Primary Dx) 07/21/2024 Orders Only [facility]) - [facility] Urology [address] [place] [address] [place] [phone] Marisol Hernandez MD from Last 3 Months Allergies No known active allergies Medications losartan (COZAAR) 25 mg tablet Take 1 tablet (25 mg total) by mouth daily Active simvastatin (ZOCOR) 5 mg tablet Take 1 tablet (5 mg total) by mouth nightly Active Active Problems No known active problems Social History Tobacco Use Types Packs/Day Years Used Date Smoking Tobacco: Never Assessed Sex and Gender Information Value Date Recorded Sex Assigned at Not on file Legal Sex Male 9:22 AM SALVAGE LABORER Gender Identity Not on file Sexual Orientation Not on file Last Filed Vital Signs Vital Sign Reading Time Taken Comments Blood Pressure 134/88 07/27/2024 12:19 PM SALVAGE LABORER Pulse 78 07/27/2024 12:19 PM SALVAGE LABORER Temperature 36.8 C (98.3 F) 07/24/2021 8:54 AM SALVAGE LABORER Respiratory Rate 16 07/24/2021 8:54 AM SALVAGE LABORER Oxygen Saturation 96% 07/24/2021 8:54 AM SALVAGE LABORER Inhaled Oxygen Concentration - - Weight 104.3 kg (230 lb) 08/26/2024 10:19 AM CDT Height 175.3 cm (5' 9 ) 08/26/2024 10:19 AM CDT Body Mass Index 33.97 08/26/2024 10:19 AM CDT Plan of Treatment Not on file Procedures Procedure Name Priority Date/Time Associated Diagnosis Comments PSA SCREEN Routine 08/18/2024 7:59 AM CDT Elevated PSA URINE CULTURE Routine 07/27/2024 12:51 PM SALVAGE LABORER Elevated PSA from Last 3 Months Results * (ABNORMAL) PSA screen (08/18/2024 7:59 AM CDT) PSA-Total 5.32(H) <=3.90 ng/mL Comment: Interpretive Data AGE SEX REFERENCE INTERVAL 0 minutes-150 years Female None 0 minutes-49 years Male None 50-59 years Male 0-3.90 60-69 years Male 0-5.40 70-79 years Male 0-6.20 80-150 years Male 0-6.20 The Nikolai PSA Total assay procedure was used. Results from different manufacturers or methods may not be comparable. Serial testing should be performed using the same method. Current interpretive data last revised 21. Blood 08/18/2024 7:59 AM CDT 08/18/2024 9:09 PM CDT us Marisol Hernandez MD LAB BLOOD ORDERABLES Final Resul t ANISHA [address] [place] [address] * Urine culture Urine, clean voided (07/27/2024 12:51 PM SALVAGE LABORER) Report Final Report: Less than 100,000 colonies/mL (clinically insignificant growth based on current clinical standards) Organism (CLINICALLY INSIGNIFICANT GROWTH ANISHA BISHOP Urine, clean voided 07/27/2024 12:51 PM SALVAGE LABORER 07/27/2024 5:09 PM SALVAGE LABORER Narrative ANISHA MIRELES - 07/28/2024 6:46 PM SALVAGE LABORER Testing performed by [facility] Microbiology Laboratory ([phone]) Marisol Hernandez MD LAB MICROBIOLOGY - GENERAL ORDER CHARLY Final Result ANISHA BISHOP [facility] [place] [address] from Last 3 Months Insurance [facility] [id number] [facility] [id number] [facility] [id number] Care Teams Press Set Up Person Relationship Specialty Start Date End Date Macrina Rosado DO PCP - General Family Medicine 07/24/21
--- OUTSIDE RECORDS SUMMARY | 2024-08-28 00:46 | XMS_ITS | Encounter Summary ---
Author Organization [facility] Address [address] [facility] [address] [place] [address] Phone Care Team Providers Care Long Term Acute Care Registered Nurse Name Role Phone Macrina Rosado DO Primary Care Provider [phone]- [phone] Encounter Details Date Type Department Care Team (Late st Contact Info) Description 08/19/2024 Results [facility]-Up [facility] ([facility]) - [facility] Urology [address] [facility] Advanced Medicine 11th [place] [address] [place] [address] Marisol Hernandez MD [address] [facility] [place] [address] Social History Tobacco Use Types Packs/Day Years Used Date Smoking Tobacco: Never Assessed Sex and Gender Information Value Date Recorded Sex Assigned at Not on file Legal Sex Male 9:22 AM TOOLROOM CLERK Gender Identity Not on file Sexual Orientation Not on file documented as of this encounter Plan of Treatment Not on file documented as of this encounter Visit Diagnoses Not on filedocumented in this encounter Care Teams Long Term Acute Care Registered Nurse Relationship Specialty Start Date End Date Macrina Rosado DO PCP - General Family Medicine 07/24/21 documented as of this encounter
--- OUTSIDE RECORDS SUMMARY | 2024-08-28 00:46 | XMS_ITS | Clinical Summary ---
Author Organization [facility] Address [address] [facility] [place] [address] Care Team Providers Care Metrology Manager Name Role Phone Sonny Harding MD Primary Care Provider [phone] Source Comments [facility],non-owned Affiliates and Associated Physician Practices is amultiple site organization consisting of ambulatory clinics and hospital sitesin [place], [place], [place] and [place]. This disclosure is being madepursuant to the Care Everywhere program and may not contain all information available regarding this patient. Last updated 18.[facility] Allergies No known active allergies Medications * [...] Comments Blood Pressure 134/74 07/25/2017 11:58 AM TARP REPAIRER Pulse 83 07/25/2017 11:58 AM TARP REPAIRER Temperature 37.2 C (99 F) 07/25/2017 11:58 AM TARP REPAIRER Respiratory Rate - - Oxygen Saturation 96% 07/25/2017 11:58 AM TARP REPAIRER Inhaled Oxygen Concentration - - Weight 96.6 kg (213 lb) 07/25/2017 11:58 AM TARP REPAIRER Height 177.2 cm (5' 9.75 ) 07/25/2017 11:58 AM Bell CASTILLO Body Mass Index 30.78 07/25/2017 11:58 AM TARP REPAIRER Plan of Treatment Health Maintenance Due Date [...] VACCINE ( - 2023-2 5 season) 2024 DEPRESSION SCREENING 05/24/2024 INFLUENZA VACCINE (Season Ended) 2025 HIB VACCINE Aged Out No longer eligi ble based on patient's age to complete this topic HPV VACCINE Aged Out No longer eligi ble based on patient's age to complete this topic MENINGOCOCCAL (Group B) VACC INE SHARED DECISION-MAKING Aged Out No longer eligibl e based on patient's age to complete this topic MENINGOCOCCAL GROUPS A/C/Y/W VACCINE Aged Out No longer eligible b ased on patient's age to complete this topic PNEUMOCOCCAL VACCINE Aged Out No long er eligible based on patient's age to complete this topic Care Teams Metrology Manager Relationship Specialty Start Date End Date Sonny Harding MD [address] [place] [address] PCP - General Family Medicine 07/25/17
--- OUTSIDE RECORDS SUMMARY | 2024-08-28 00:46 | XMS_ITS | Encounter Summary ---
Author Organization [facility] Address [address] [place] [address] Care Team Providers Care Shake Feeder Name Role Phone CourttanyatroyMacrina Enma Primary Care Provider [phone]- [phone] Reason for Referral * MRI/CAT/PET Scan (Routine) - Closed Specialty Diagnoses / Procedures Referred By Contac t Referred To Contact Radiology Diagnoses Elevated PSA Procedures MRI Pelvis Prostate W WO Contrast Marisol Hernandez MD [address] [facility] [place] [address] Phone: tel: fax: [address] [address] Referral ID Status Reason Start Date Expiration Date Visits Re quested Visits Authorized [id number] Closed 07/21/2024 08/20/2025 1 1 Reason for Visit * MRI/CAT/PET Scan (Routine) - Closed Specialty Diagnoses / Procedures Referred By Contac t Referred To Contact Radiology Diagnoses Elevated PSA Procedures MRI Pelvis Prostate W WO Contrast Marisol Hernandez MD [address] [facility] [place] [address] Phone: tel: fax: [address] [address] Referral ID Status Reason Start Date Expiration Date Visits Re quested Visits Authorized [id number] Closed 07/21/2024 08/20/2025 1 1 Encounter Details Date Type Department Care Team (Latest Contact Info) Description 08/26/2024 10:10 AM CDT - 08/26/2024 11:59 PM CDT Hospital Encounter [facility] [address] [place] [address] Elevated PSA Discharge Disposition: Discharge to home or self care Social History Tobacco Use Types Packs/Day Years Used Date Smoking Tobacco: Never Assessed Sex and Gender Information Value Date Recorded Sex Assigned at Not on file Legal Sex Male 9:22 AM MEDICAL TECHNOLOGIST HEMATOLOGY Gender Identity Not on file Sexual Orientation Not on file documented as of this encounter Medications at Time of Discharge losartan (COZAAR) 25 mg tablet Take 1 tablet (25 mg total) by mouth daily simvastatin (ZOCOR) 5 mg tablet Take 1 tablet (5 mg total) by mouth nightly documented as of this encounter Discharge Disposition Disposition Code Departure Means Destination Discharge to home or self care documented in this encounter Plan of Treatment Pending Results Name Type Priority Associated Diagnoses Date /Time MRI Pelvis Prostate W WO Contrast Imaging Schedule Routine, Read Routine (OP Routine) Elevated PSA 08/26/2024 11:33 AM CDT Scheduled Orders Name Type Priority Associated Diagnoses Orde r Schedule MRI Pelvis Prostate W WO Contrast Imaging Schedule Routine, Read Routine (OP Routine) Elevated PSA Once for 1 Occurrences starting 08/26/2024 until 08/26/2024 documented as of this encounter Visit Diagnoses Diagnosis Elevated PSA Elevated prostate specific antigen (PSA) documented in this encounter Administered Medications Inactive Administered Medications - up to 3 most recent administrations Medication Order MAR Action Action Date Dose Rate Site gadoterate meglumine injection 20 mL 20 mL, intravenous, Once in imaging, contrast, Starting on 08/26/24 at 1051, For 1 dose Contrast Given 08/26/2024 11:27 AM CDT 20 mL documented in this encounter Orders Medications Ordered That Adin ht Not Have Been Administered Count Last Ordered Date First Ordered Date gadoterate meglumine injection 20 mL 1 09/2024 documented in this encounter Care Teams Shake Feeder Relationship Specialty Start Date End Date Macrina Rosado DO PCP - General Family Medicine 07/24/21 documented as of this encounter
--- OUTSIDE RECORDS SUMMARY | 2024-08-28 00:46 | XMS_ITS | Clinical Summary ---
Author Organization [address] Address [address] [place] [id number] Care Team Providers Care Rn Homecare Name Role Phone Macrina Rosado Primary Care Provider [phone] Allergies No known active allergies Medications losartan (COZAAR) 25 mg tablet Take 1 tablet (25 mg total) by mouth daily Active simvastatin (ZOCOR) 5 mg tablet Take 1 tablet (5 mg total) by mouth nightly Active Active Problems No known active problems Encounters Date Type Department Care Team Description 08/26/2024 10:10 AM CDT - 08/26/2024 11:59 PM CDT Hospital Encounter [facility] [address] [place] [address] Elevated PSA Discharge Disposition: Discharge to home or self care 08/19/2024 Results Follow-Up [facility] ([facility]) - [facility] Urology [address] [place] [address] for Advanced Medicine 11th [place] [address] [place] [address] Marisol Hernandez MD 08/18/2024 8:00 AM CDT Lab [facility] Outpatient Lab at [address] [address] Elevated PSA (Primary Dx) 08/18/2024 7:59 AM CDT - 08/18/2024 11:59 PM CDT Hospital Encounter [address] [address] Elevated PSA Discharge Disposition: Discharge to home or self care 07/27/2024 12:51 PM PAYROLL BENEFITS CLERK - 07/27/2024 11:59 PM PAYROLL BENEFITS CLERK Hospital Encounter [address] [address] Elevated PSA Discharge Disposition: Discharge to home or self care 07/27/2024 11:40 AM PAYROLL BENEFITS CLERK [facility] - [facility] [address] [facility] Advanced Medicine 11th [place] [address] Marisol Hernandez MD Elevated PSA (Primary Dx) 07/21/2024 Telephone [facility] ([facility]) - [facility] Urology [address] [place] [address] Advanced [facility] 11th [place] [address] Marisol Hernandez MD 07/21/2024 Orders Only [facility] ([facility]) - [facility] Urology [address] [place] [address] Advanced [place] [address] [place] [address] Marisol Hernandez MD Elevated PSA (Primary Dx) 07/21/2024 Orders Only [facility] ([facility]) - [facility] Urology [address] [place], [place] [address] [place] [address] Marisol Hernandez MD from Last 3 Months Social History Tobacco Use Types Packs/Day Years Used Date Smoking Tobacco: Never Assessed Sex and Gender Information Value Date Recorded Sex Assigned at Not on file Legal Sex Male 9:22 AM PAYROLL BENEFITS CLERK Gender Identity Not on file Sexual Orientation Not on file Obstetrics History Last Filed Vital Signs Vital Sign Reading Time Taken Comments Blood Pressure 134/88 07/27/2024 12:19 PM PAYROLL BENEFITS CLERK Pulse 78 07/27/2024 12:19 PM PAYROLL BENEFITS CLERK Temperature 36.8 C (98.3 F) 07/24/2021 8:54 AM PAYROLL BENEFITS CLERK Respiratory Rate 16 07/24/2021 8:54 AM PAYROLL BENEFITS CLERK Oxygen Saturation 96% 07/24/2021 8:54 AM PAYROLL BENEFITS CLERK Inhaled Oxygen Concentration - - Weight 104.3 kg (230 lb) 08/26/2024 10:19 AM CDT Height 175.3 cm (5' 9 ) 08/26/2024 10:19 AM CDT Body Mass Index 33.97 08/26/2024 10:19 AM CDT Plan of Treatment Health Maintenance Due Date Last Done Comments Colon Cancer Screening-Colonoscopy 1966 Depression Screening 1966 Hepatitis C Screening 1966 DTaP/Tdap/Td Vaccine (1 - Tdap) 1977 Hepatitis B Screening 02/29/1984 Regular Well Visit/Exam 18-64 02/29/1984 Zoster Vaccine (1 of 2) 02/29/2016 Covid-19 Vaccine (3 - 2023-2 5 season) 2024 04/22/2021, 08/01/2020 Influenza Vaccine (Season Ended) 2025 03/10/2018 Prostate Cancer Screening-PSA 08/18/2026 08/18/2024 Pneumococcal vaccine <65 Aged Out No longer eligible based on patient's age to complete this topic Procedures Procedure Name Priority Date/Time Associated Diagnosis Comments PSA SCREEN Routine 08/18/2024 7:59 AM CDT Elevated PSA URINE CULTURE Routine 07/27/2024 12:51 PM PAYROLL BENEFITS CLERK Elevated PSA from Last 3 Months Results [...] LAB BLOOD ORDERABLES Final Resul t ANISHA CEDILLO [address] [place] [address] * Urine culture Urine, clean voided (07/27/2024 12:51 PM PAYROLL BENEFITS CLERK) Report Final Report: Less than 100,000 colonies/mL (clinically insignificant growth based on current clinical standards) Organism (CLINICALLY INSIGNIFICANT [facility] Urine, clean voided 07/27/2024 12:51 PM PAYROLL BENEFITS CLERK 07/27/2024 5:09 PM PAYROLL BENEFITS CLERK Narrative [facility] - 07/28/2024 6:46 PM PAYROLL BENEFITS CLERK Testing performed by [facility] Microbiology Laboratory ([phone]) us Marisol Hernandez MD LAB MICROBIOLOGY - GENERAL ORDER CHARLY Final Result Performing Organization Address City/[facility]/ZIP Co de Phone Number [facility] [place] [address] from Last 3 Months Insurance [facility] [id number] [facility] [id number] [facility] [id number] Care Teams Rn Homecare Relationship Specialty Start Date End Date Macrina Rosado DO PCP - General Family Medicine 07/24/21
[2024-08-28 09:39] VITALS: BP 120/88; PULSE 74; RESP 16; TEMP 36.3; O2SAT 99; BMI 32.3
[2024-08-28] MEDS: LACTATED RINGERS 1,000 ML 150 ML IV CONT (09:56)
--- NOTE | 2024-08-28 10:26 | P.PNAN_ITS ---
Anes - Initial Pre Proc Eval Procedure: Operation Date: 08/28/24 11:15 Proposed Procedures p Esophagogastroduodenoscopy - Ankur Ronquillo MD Date/Time: 08/28/24 10:26 Surgeon: Ankur Ronquillo MD Pre Op Diagnosis: Dysphagia, unspecified Patient Data Age: 59 Gender: M Height: 1.78 m Weight: 102.3 kg Last Vital Signs Temp 97.3 F L 08/28/24 09:39 Pulse 74 08/28/24 09:39 Resp 16 08/28/24 09:39 BP 120/88 08/28/24 09:39 Pulse Ox 99 08/28/24 09:39 O2 Del Method Room Air 08/28/24 09:39 Allergies Allergy/AdvReac Type Severity Reaction Status Date / Time Latex, Natural Rubber AdvReac Intermediate painful Verified 08/28/24 09:38 Home Medications ?Medication ?Instructions ?Recorded ?Confirmed ?Type cetirizine 10 mg tablet (Zyrtec) 10 mg PO DAILY PRN Allergy Symptoms 10/04/23 History fluticasone propionate 50 1 spray intranasal DAILY PRN 10/04/23 08/17/24 History mcg/actuation nasal Allergy Symptoms spray,suspension simvastatin 5 mg tablet 5 mg PO DAILY #90 tabs 04/27/24 08/28/24 Rx losartan 25 mg tablet 25 mg PO DAILY 08/17/24 08/28/24 History Patient hx anesthesia problems: none Family hx anesthesia problems: none Results Review: All pre-operative results and documents have been reviewed as part of the pre- operative evaluation. [facility] Surgical History Surgical History H/O sinus surgery Family History Family History Grandparent Diabetes mellitus Cerebrovascular accident Father Hypertension Family history of coronary artery disease Sibling Hypertension Acute myocardial infarction Family history of coronary artery disease Social History Social History Smoking status: Never smoker Alcohol intake: current Drinks per week: 2 Alcohol use details: weekends Substance use: never Substance use type: does not use Lack of Transportation: No Lack of Food: Never True Current Housing: I Have Housing Concerned About Future Housing: No Difficulty Paying Gas/Electric Bills: No Difficulty Paying for Meds: No Currently Unemployed: No Education: Bachelor's Degree Difficulty w/ Childcare or Family Care: No Living arrangements: with family Occupation/Education: occupation Gender identity (if verbalized by the patient): Male Sexual Orientation (if Verbalized by the Patient): Straight or Heterosexual Spiritual care concerns: No Agree to blood products: Yes Anes - Eval Final PreProcedure Day of Procedure 08/28/24 10:26 Patient weight: obese Heart: regular rate and rhythm Lungs: clear to auscultation Airway: Mallampati scale class II Neurological: alert and oriented Last oral intake: >/= 8 hours ASA classification: II Emergent: no Anesthetic plan: proceed Anesthesia type and monitoring: general GIVS and standard monitoring Results Review: All pre-operative results and documents have been reviewed as part of the pre- operative evaluation. Informed Consent: The patient's anesthetic plan and its attendant risks and benefits were discussed with the patient/family/POA. Questions were solicited and answers provided to the satisfaction of the patient/family/POA.
--- NOTE | 2024-08-28 10:46 | PM.HPGS ---
History of Present Illness History of Present Illness Consent: Risks, benefits, and alternatives have been discussed and questions answered. Patient agrees to proceed with procedure. Chief complaint: Dysphagia, unspecified Narrative: Hebert Eason is a 59 year old male with belching and intermittent regurgitation after eating, he went to see ENT 1.5 year ago for same issue, had surgical intervention but no major changes. Never had egd Review of Systems Review of Systems: All systems reviewed & are unremarkable except as noted in HPI and below PMFSH Past Medical History Medical History (Updated 08/28/24 @ 10:49 by Ankur Ronquillo MD) Belching Surgical History Surgical History H/O sinus surgery Family History Family History Grandparent Diabetes mellitus Cerebrovascular accident Father Hypertension Family history of coronary artery disease Sibling Hypertension Acute myocardial infarction Family history of coronary artery disease Social History Social History Smoking status: Never smoker Alcohol intake: current Drinks per week: 2 Alcohol use details: weekends Substance use: never Substance use type: does not use Lack of Transportation: No Lack of Food: Never True Current Housing: I Have Housing Concerned About Future Housing: No Difficulty Paying Gas/Electric Bills: No Difficulty Paying for Meds: No Currently Unemployed: No Education: Bachelor's Degree Difficulty w/ Childcare or Family Care: No Living arrangements: with family Occupation/Education: occupation Gender identity (if verbalized by the patient): Male Sexual Orientation (if Verbalized by the Patient): Straight or Heterosexual Spiritual care concerns: No Agree to blood products: Yes Meds Home Medications and Allergies Home Medications ?Medication ?Instructions ?Recorded ?Confirmed ?Type cetirizine 10 mg tablet (Zyrtec) 10 mg PO DAILY PRN Allergy Symptoms 10/04/23 08/28/24 History fluticasone propionate 50 1 spray intranasal DAILY PRN 10/04/23 08/17/24 History mcg/actuation nasal Allergy Symptoms spray,suspension simvastatin 5 mg tablet 5 mg PO DAILY #90 tabs 04/27/24 08/28/24 Rx losartan 25 mg tablet 25 mg PO DAILY 08/17/24 08/28/24 History Allergies Allergy/AdvReac Type Severity Reaction Status Date / Time Latex, Natural Rubber AdvReac Intermediate painful Verified 08/28/24 09:38 Vital Signs Vital Signs - 24 hr 08/28/24 09:39 Temperature 97.3 F L Pulse Rate 74 Respiratory Rate 16 Blood Pressure 120/88 Pulse Oximetry 99 Oxygen Delivery Room Air Exam Const: General: comfortable and no acute distress HENMT: Face/Nose/Sinus: Normal nares present Eyes: General: appearance normal, both eyes and all related structures Neck: Neck: no JVD Resp: Auscultation: clear to auscultation bilaterally Cardio: Rate: regular rate Rhythm: regular rhythm GI: Inspection: non-distended GI Palp: Yes Soft to palpation Skin: General skin exam: normal color Neuro: General: gait normal Speech: normal speech Extrem: General: normal to inspection Psych: Mental Status: mental status grossly normal Assessment and Plan Assessment and plan (1) LPRD (laryngopharyngeal reflux disease): Code(s): K21.9 - Gastro-esophageal reflux disease without esophagitis Status: Acute Assessment and Plan: egd with bx (2) Belching: Code(s): R14.2 - Eructation Status: Acute
[2024-08-28 11:05] VITALS: BP 99/56; PULSE 77; RESP 24; O2SAT 97
[2024-08-28 11:15] VITALS: BP 111/79; PULSE 70; RESP 18; O2SAT 98
[2024-08-28 11:25] VITALS: BP 114/61; PULSE 66; RESP 17; O2SAT 98
== END 2024-08-28 11:48 | disposition home or self-care (01) ==
PROVIDERS: PCP Family Medicine; Referring Provider Family Medicine; Visit Provider Internal Medicine Gastroenterology
PROC: 0DJ08ZZ Inspection of Upper Intestinal Tract, Via Natural or Artificial Opening Endoscopic (ICD-10-PCS; CPT 43239; principal; 2024-08-28 11:15)
DX: K20.0 Eosinophilic esophagitis (principal); K22.2 Esophageal obstruction; K44.9 Diaphragmatic hernia without obstruction or gangrene; K31.89 Other diseases of stomach and duodenum; E66.9 Obesity, unspecified; Z68.32 Body mass index [BMI] 32.0-32.9, adult; Z98.890 Other specified postprocedural states; Z82.49 Family history of ischemic heart disease and other diseases of the circulatory system
CPT/HCPCS: 43239; 43249; 88305; C1726; J2003; J2704; J7120

== ENCOUNTER 2024-12-26 08:26 | Outpatient (CLI) | payer OTHER, SELFPAY ==
--- OUTSIDE RECORDS SUMMARY | 2024-12-26 08:31 | XMS_ITS | Patient Health Record ---
Author Organization [employer] Address [address] [place] [address] Care Team Providers Care Strategic Consultant Name Role Phone Sonny Harding MD Primary Care Provider Unavaila ble Reason For Referral No Information Problems Problem Type SNOMED Code ICD Code Onset Dates Problem Status W/U Status Risk Notes Problem [id number] Colon cancer screening (Z12.11) Active confirmed Plan Of Treatment No Information Insurance Providers Payer Name Payer Address Payer Phone Subscriber Number Group Number Insured Name Patient Relationship to Insured Coverage Start Date Coverage End Date [employer] P[employer] [address] [place] [address] [phone] [id number] Hebert Eason Self - patient is the insured
--- OUTSIDE RECORDS SUMMARY | 2024-12-26 08:31 | XMS_ITS | Clinical Summary ---
Author Organization [facility] Address [address] [place] [address] Care Team Providers Care Unit Control Clerk Name Role Phone Sonny Harding MD Primary Care Provider [phone] Source Comments [facility],non-owned Affiliates and Associated Physician Practices is amultiple site organization consisting of ambulatory clinics and hospital sitesin [place], [place], [place] and [place]. This disclosure is being madepursuant to the Care Everywhere program and may not contain all information available regarding this patient. Last updated 18.[facility] Allergies No known active allergies Medications * Be aware that medications may not be up to date on this document. Alwaysverify current medications with the patient. simvastatin (ZOCOR) 20 MG tablet Take 20 mg by mouth at bedtime Active benzonatate (TESSALON) 200 MG capsule Take 1 capsule by mouth 3 times daily as needed for Cough 30 capsule 07/25/2017 Active Social History Tobacco Use Types Packs/Day Years Used Date Smoking Tobacco: Never Sex and Gender Information Value Date Recorded Sex Assigned at Not on file Legal Sex Male 10:02 AM RN BUILDING Gender Identity Not on file Sexual Orientation Not on file Last Filed Vital Signs Vital Sign Reading Time Taken Comments Blood Pressure 134/74 07/25/2017 11:58 AM RN BUILDING Pulse 83 07/25/2017 11:58 AM RN BUILDING Temperature 37.2 C (99 F) 07/25/2017 11:58 AM RN BUILDING Respiratory Rate - - Oxygen Saturation 96% 07/25/2017 11:58 AM RN BUILDING Inhaled Oxygen Concentration - - Weight 96.6 kg (213 lb) 07/25/2017 11:58 AM RN BUILDING Height 177.2 cm (5' 9.75) 07/25/2017 11:[address] Body Mass Index 30.78 07/25/2017 11:58 AM RN BUILDING Plan of Treatment Health Maintenance Due Date [...] 02/29/2016 SCREENING FOR DIABETES 07/25/2017 COVID-19 VACCINE (1 - 2023-2 5 season) 2024 DEPRESSION SCREENING 05/24/2024 INFLUENZA VACCINE (#1) 2025 HIB VACCINE Aged Out No longer [...] patient's age to complete this topic Insurance [employer] SELF PAY NO INSURANCE Member Subscriber Plan / Payer (Ef fective for All Dates) Name:Anthony Eason Member ID:Not on file Relation to Subscriber:Not on file Name:ANTHONY EASON Subscriber ID:Not on file (Home) Address: [address] [place] [id number] Payer ID:Not on file Group ID:Not on file Type:Self Pay Address: [place], [place] Care Teams Unit Control Clerk Relationship Specialty Start Date End Date Sonny Harding MD [address] [place] [id number] PCP - General Family Medicine 07/25/17
--- OUTSIDE RECORDS SUMMARY | 2024-12-26 08:31 | XMS_ITS | Referral Summary ---
Author Organization [facility] [address] [place] [address] Care Team Providers Care Building Carpenter Name Role Phone Macrina Rosado Primary Care Provider +1- [phone] Encounters Date Type Department Care Team Description 10/24/2024 Telephone [facility] - [facility] Urology [address] 11th [place] [address] [place] [address] Marisol Hernandez MD 10/23/2024 Telephone [facility] Surgery [address] [place] [address] Tena Parks 10/20/2024 8:50 AM CDT - 10/20/2024 9:58 AM CDT Surgery [facility] Operating Room [address] [place] [address] Marisol Hernandez MD BIOPSY PROSTATE - TRANSPERINEAL 10/20/2024 8:33 AM CDT Anesthesia Event [facility] Operating Room [address] [place] [address] Rafaela Carroll MD McGowan, Jessica Lynn, NP 10/20/2024 6:41 AM CDT - 10/20/2024 10:23 AM CDT Hospital Encounter [facility] Operating Room [address] [place] [address] Marisol Hernandez MD Elevated PSA Discharge Disposition: Discharge to home or self care 10/06/2024 1:15 PM CDT Office Visit [facility] Dermatology [address] [facility] [address] [place] [address] Jhonny Bartholomew IV, MD PhD Tinea cruris (Primary Dx); Tinea pedis of both feet; Onychomycosis; Rash and other nonspecific skin eruption 10/02/2024 Telephone [facility] Surgery [address] [place] [address] Sulema Sepulveda EMT from Last 3 Months Allergies Active Allergy Reactions Criticality Noted Date Comments Latex Rash Medium 09/12/2024 -condoms Medications losartan (COZAAR) 25 mg tabletIndicatio ns:hypertension Take 1 tablet (25 mg total) by mouth aadc plans staff officer before breakfast Active simvastatin (ZOCOR) 5 mg tabletIndicatio ns:hyperlipidem ia Take 1 tablet (5 mg total) by mouth nightly Active omeprazole (PriLOSEC) 40 mg capsuleIndicati ons:Stress Ulcer Prophylaxis,Orlin atment of Non-Bleeding Gastric Disorder Take 1 capsule (40 mg total) by mouth aadc plans staff officer before breakfast Active cetirizine (ZyrTEC) 10 mg tabletIndicatio ns:Perennial Allergic Rhinitis,Season al Allergic Rhinitis Take 1 tablet (10 mg total) by mouth as needed for allergies Active ibuprofen 200 mg tab/cap Take 1 tablet/capsule (200 mg total) by mouth every 6 (six) hours as needed for pain Active acetaminophen (TYLENOL) 325 mg tablet Take 2 tablets (650 mg total) by mouth every 6 (six) hours as needed for pain Active sod bicarb-sod chlor-neti pot packet with rinse deviceIndicatio ns:Nasal Congestion 1 each by sinus irrigation route as needed (nasal irrigation) Active fluticasone propionate (FLONASE) 50 mcg/actuation nasal sprayIndication s:Chronic Non-Allergic Rhinitis Administer 1 spray into each nostril as needed for rhinitis Active terbinafine (LamiSIL) 250 mg tabletIndicatio ns:Skin/Soft Tissue Infection Take 1 tablet (250 mg total) by mouth as needed Active azelastine 205.5 mcg (0.15 %) spray,non-aeros olIndications:P erennial Allergic Rhinitis,Season al Allergic Rhinitis Administer 205.5 mcg into each nostril as needed Active famotidine (PEPCID) 10 mg tabletIndicatio ns:gastroesopha geal reflux disease Take 1 tablet (10 mg total) by mouth 2 (two) times a day as needed for heartburn Zantac Active trolamine salicylate 10 % cream Apply 1 Application topically as needed for muscle/joint pain Balmex rectal pain/itching Active amoxicillin (AMOXIL) 125 mg chewable tablet Take 1 tablet (125 mg total) by mouth daily For 10 days, day 2 of 10 Active methylPREDNISol one (MEDROL) 4 mg tablet Take 1 tablet (4 mg total) by mouth daily Day 2 of 6 Active nystatin creamIndication s:rash/inflamma tion Apply 1 Application topically 2 (two) times a day Active nystatin powderIndicatio ns:rash/inflamm ation Apply 1 Application topically 4 (four) times a day Active ketoconazole (NIZORAL) 2 % creamIndication s:fungal infection of skin Apply from ankles to tips of toes once a day and on all active fungal rash (ankles, groin, buttocks) twice a day (BID) for fungal rash treatment/preven tion. Make sure to apply to toenails. A fingertip unit (FTU) of medicine will treat each hand-sized area of rash. A FTU is the amount of medicine squeezed out of its tube from the last joint of the pointer finger to its tip. In an adult, this amount is ~0.5 g, which will is enough to treat/cover (1) an entire hand, (2) half the face, or (3) one-third of an arm. You will use ~4 FTU (2 g) each day. 60 g 11 Active Active Problems Problem Noted Date Diagnosed Date Elevated PSA 08/28/2024 Social History Tobacco Use Types Packs/Day Years Used Date Smoking Tobacco: Never Smokeless Tobacco: Never Tobacco Cessation:Counseling Given: Not Answered AUDIT-C Answer Date Recorded Q1: How often do you have a drink containing alc ohol? 2-3 times a week 09/12/2024 Q2: How many drinks containi ng alcohol do you have on a typical day when you are drinking? 1 or 2 09/12/2024 Q3: How often do you have si x or more drinks on one occasion? Never 09/12/2024 Personal Safety Answer Date Recorded Have you ever been in or are you currently in a harmful physical or emotional relationship or is someone making you feel afraid or unsafe? 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 Gender Identity Not on file Sexual Orientation Not on file Last Filed Vital Signs Vital Sign Reading Time Taken Comments Blood Pressure 112/90 10/20/2024 9:30 AM CDT Pulse 62 10/20/2024 9:40 AM CDT Temperature 35.7 C (96.3 F) 10/20/2024 9:20 AM CDT Respiratory Rate 12 10/20/2024 9:40 AM CDT Oxygen Saturation 93% 10/20/2024 9:40 AM CDT Inhaled Oxygen Concentration - - Weight 103 kg (227 lb) 10/20/2024 7:15 AM CDT Height 175.3 cm (5' 9) 09/12/2024 2:40 PM CDT Body Mass Index 33.52 09/12/2024 2:40 PM CDT Plan of Treatment Not on file Procedures Procedure Name Priority Date/Time Associated Diagnosis Comments BIOPSY PROSTATE - TRANSPERINEAL 10/20/2024 8:38 AM CDT Elevated PSA Case Notes 09/27@[facility]- office will find pt a new date per Lynda via case msg (EF) SURGICAL PATHOLOGY Routine 10/20/2024 8: 01 AM CDT Elevated PSA PSA SCREEN Routine 08/18/2024 7:59 AM CDT Elevated PSA from Last 3 Months or Most Recently Relevant to Health Maintenance Results * Surgical pathology (10/20/2024 8:01 AM CDT) Tissue (Prostate, Needle Biopsy) 10/20/2024 8:01 AM CDT Tissue specimen (specimen) (Prostate, Needle Biopsy) 10/20/2024 8:01 AM CDT Tissue specimen (specimen) (Prostate, Needle Biopsy) 10/20/2024 8:01 AM CDT Tissue specimen (specimen) (Prostate, Needle Biopsy) 10/20/2024 8:01 AM CDT Tissue specimen (specimen) (Prostate, Needle Biopsy) 10/20/2024 8:02 AM CDT Tissue specimen (specimen) (Prostate, Needle Biopsy) 10/20/2024 8:02 AM CDT Tissue specimen (specimen) (Prostate, Needle Biopsy) 10/20/2024 8:02 AM CDT Tissue specimen (specimen) (Prostate, Needle Biopsy) 10/20/2024 8:03 AM CDT Tissue specimen (specimen) (Prostate, Needle Biopsy) 10/20/2024 8:03 AM CDT Tissue specimen (specimen) (Prostate, Needle Biopsy) 10/20/2024 8:03 AM CDT Tissue specimen (specimen) (Prostate, Needle Biopsy) 10/20/2024 8:20 AM CDT Narrative PATHOLOGY [facility] - 10/24/2024 11:24 AM CDT EPIC results best viewed via link to PDF [facility] [place] [address] Note to Patients: This report may contain a detailed description of human tissue sent by a health care provider to the laboratory for pathologic evaluation. The content of this report is essential for diagnosis and may provide important critical findings. This information may be unfamiliar to patients to review without a medical professional present. It is advised that the patient review this report in the presence of a health care provider who can answer questions and explain the details. SURGICAL PATHOLOGY REPORT FINAL Patient Name: ANTHONY EASON Gender: Rosetta : 1965 (Age: 59) Address: [address] [place] [id number] Hospital #: [id number] Taken:10/20/2024 Received:10/20/2024 Reported: 10/24/2024 Patient Type: [facility] Service: Surgery Location: [facility] OR POD1 Physician(s): Jon Kaur DO Diagnosis: A. Prostate, right posterior medial, biopsy - Benign prostatic tissue B. Prostate, right posterior lateral, biopsy - Atypical small acinar proliferation C. Prostate, right base, biopsy - Benign prostatic tissue D. Prostate, right anterior medial, biopsy - Atypical small acinar proliferation E. Prostate, right anterior lateral, biopsy - Benign prostatic tissue F. Prostate, left posterior medial, biopsy - Atypical small acinar proliferation G. Prostate, left posterior lateral, biopsy - Benign prostatic tissue H. Prostate, left base, biopsy - Benign prostatic tissue I. Prostate, left anterior medial, biopsy - Benign prostatic tissue J. Prostate, left anterior lateral, biopsy - Benign prostatic tissue K. Prostate, region of interest, biopsy - Benign prostatic tissue ky/10/23/2024 07:46 By this signature, I attest that the above diagnosis is based upon my personal examination of the slides(and/or other material indicated in the diagnosis). Tone Peguero DO Report Electronically Reviewed and Signed Out By Tone Peguero DO 10/24/2024 11:24:02 Microscopic Description and Comment: Rare atypical glands are seen on several cores. Immunostaining for prostate cocktail (multiplex antibody stain procedure, p63, 34BE12, and AMACR, controls adequate) was performed (blocks A1, B1, D1, F1, G1 and K1). On blocks A1, G1, and K1 the glands of interest show patchy positive staining for basal cell markers and patchy positive staining for AMACR, supporting the diagnosis of benign prostatic tissue. On blocks B1, D1, and F1 the glands of interest show no basal cell staining and increased AMACR expression, however, the paucity of atypical glands and relative mildness of nuclear atypia preclude a definitive diagnosis. Maricruz Sylvester M.D., PhD History: The patient is a 59-year-old man presenting with elevated PSA. Operative procedure: Transperineal prostate biopsy. Specimen(s) Received: A: Right posterior medial B: Right posterior lateral C: Right base D: Right anterior medial E: Right anterior lateral F: Left posterior medial G: Left posterior lateral H: Left base I: Left anterior medial J: Left anterior lateral K: Region of interest Gross Description: Received in 11 formalin jars labeled with the patient's identifiers. A. Labeled right posterior medial and consists of two core(s) of soft hopkins tissue (1.4 and 1.7 cm each in length by 0.1 cm in diameter). Stained with eosin. Labeled A1. Jar 0. B. Labeled right posterior lateral and consists of two core(s) of soft hopkins tissue (1.0 and 1.5 cm each in length by 0.1 cm in diameter). Stained with eosin. Labeled B1. Jar 0. C. Labeled right base and consists of three core(s) of soft hopkins tissue (0.1-1.2 cm each in length by 0.1 cm in diameter). Stained with eosin. Labeled C1. Jar 0. D. Labeled right anterior medial and consists of two core(s) of soft hopkins tissue (1.0 and 1.4 cm each in length by 0.1 cm in diameter). Stained with eosin. Labeled D1. Jar 0. E. Labeled right anterior lateral and consists of two core(s) of soft hopkins tissue (1.0 and 1.2 cm each in length by 0.1 cm in diameter). Stained with eosin. Labeled E1. Jar 0. F. Labeled left posterior medial and consists of four core(s) of soft hopkins tissue (0.2-1.5 cm each in length by 0.1 cm in diameter). Stained with eosin. Labeled F1. Jar 0. G. Labeled left posterior lateral and consists of two core(s) of soft hopkins tissue (1.2 and 1.5 cm each in length by 0.1 cm in diameter). Stained with eosin. Labeled G1. Jar 0. H. Labeled left base and consists of two core(s) of soft hopkins tissue (0.8 and 1.4 cm each in length by 0.1 cm in diameter). Stained with eosin. Labeled H1. Jar 0. I. Labeled left anterior medial and consists of five core(s) of soft hopkins tissue (0.2-1.2 cm each in length by 0.1 cm in diameter). Stained with eosin. Labeled I1. Jar 0. J. Labeled left anterior lateral and consists of four core(s) of soft hopkins tissue (0.3-1.7 cm each in length by 0.1 cm in diameter). Stained with eosin. Labeled J1. Jar 0. K. Labeled region of interest and consists of five core(s) of soft hopkins tissue (0.2-1.6 cm each in length by 0.1 cm in diameter). Stained with eosin. Labeled K1. Jar 0. sxst/10/20/2024 12:13 PA(s): Imani Valladares By this signature, I attest that the above diagnosis is based upon my personal examination of the slides(and/or other material). Addenda/Procedures The performance characteristics of some immunohistochemical stains, fluorescence in-situ hybridization tests and immunophenotyping by flow cytometry cited in this report (if any) were determined by the Surgical Pathology and Flow Cytometry Departments at [facility] as part of an ongoing quality control engineer program and in compliance with federally mandated regulations drawn from the Clinical Laboratory Improvement Act of 1988 (CLIA '88). Some of these tests rely on the use of analyte specific reagents and are subject to specific labeling requirements by the US Food and Drug Administration. Such diagnostic tests may only be performed in a facility that is certified by the Department of Health and Human Services as a high complexity laboratory under CLIA '88. The FDA has determined that such clearance or approval is not necessary. This test is used for clinical purposes. It should not be regarded as investigational or for research. Nevertheless, federal rules concerning the medical use of analyte specific reagents require that the following disclaimer be attached to the report: This test was developed and its performance characteristics determined by the Surgical Pathology and Flow Cytometry Departments of [facility]. It has not been cleared or approved by the U. S. Food and Drug Administration. IMAGES AND SCANNED DOCUMENTS, IF INCLUDED, ONLY VIEWABLE IN PDF VERSION OF REPORT Marisol Hernandez MD LAB PATHOLOGY ORDERABLES Final R esult PATHOLOGY [facility] 3rd Floor [place], [place] [phone] * (ABNORMAL) PSA screen (08/18/2024 7:59 AM [...] 7:59 AM CDT 08/18/2024 9:09 PM CDT Marisol Hernandez MD LAB [place]LOOD [place] [address] [facility] Department [place] [address] from Last 3 Months or Most Recently Relevant to Health Maintenance Insurance [place] [address] [facility] [id number] [facility] [id number] Member Subscriber Plan / Payer (Ef fective 2020-Present) Name:Anthony Eason Member ID:[id number] Relation to Subscriber:Self Name:Yumi Anthony Oneill Subscriber ID:[id number] Payer ID:[id number] Type:[employer] HMO/PPO Address: [employer] CLAIMS [facility] [id number] [place] [phone] Care Teams Building Carpenter Relationship Specialty Start Date End Date Macrina Rosado DO PCP - General Family Medicine 07/24/21
--- OUTSIDE RECORDS SUMMARY | 2024-12-26 08:31 | XMS_ITS | Clinical Summary ---
Author Organization [facility] [address] [place] [phone] Care Team Providers Care Property And Casualty Insurance Agent Name Role Phone Macrina Rosado Primary Care Provider +1- [phone] Allergies Active Allergy Reactions Criticality Noted Date Comments Latex Rash Medium 09/12/2024 -condoms Medications losartan (COZAAR) 25 mg tabletIndicatio ns:hypertension Take 1 tablet (25 mg total) by mouth tree tapping laborer before breakfast Active simvastatin (ZOCOR) 5 mg tabletIndicatio ns:hyperlipidem ia Take 1 tablet (5 mg total) by mouth nightly Active omeprazole (PriLOSEC) 40 mg capsuleIndicati ons:Stress Ulcer Prophylaxis,Orlin atment of Non-Bleeding Gastric Disorder Take 1 capsule (40 mg total) by mouth tree tapping laborer before breakfast 5 Active cetirizine (ZyrTEC) 10 mg tabletIndicatio ns:Perennial [...] Noted Date Diagnosed Date Elevated PSA 08/28/2024 Encounters Date Type Department Care Team Description 10/24/2024 Telephone [facility] - [facility] Urology [address] [facility] 11th [place] [address] [place] [address] Marisol Hernandez MD 10/23/2024 Telephone [facility] Surgery [address] [place] [address] LiortroyTena 10/20/2024 8:50 AM CDT - 10/20/2024 9:58 AM CDT Surgery Operating Room [address] [place] [address] Marisol Hernandez MD BIOPSY PROSTATE - TRANSPERINEAL 10/20/2024 8:33 AM CDT Anesthesia Event Operating Room [address] [place] [address] Rafaela Carroll MD McGowan, Jessica Lynn, NP 10/20/2024 6:41 AM CDT - 10/20/2024 10:23 AM CDT Hospital Encounter Operating Room [address] [place] [address] Marisol Hernandez MD Elevated PSA Discharge Disposition: Discharge to home or self care 10/06/2024 1:15 PM CDT Office Visit [facility] Dermatology [address] [facility] [address] [place] [address] Jhonny Bartholomew IV, MD PhD Tinea cruris (Primary Dx); Tinea pedis of both feet; Onychomycosis; Rash and other nonspecific skin eruption 10/02/2024 Telephone [facility] Surgery [address] [place] [address] Sulema Sepulveda, EMT from Last 3 Months Surgical History Surgery Date Site/Laterality Comments NASAL SEPTUM SURGERY 05/24/2022 - 05/23/2023 CERVICAL SPINE SURGERY 05/24/2004 - 05/23/2005 c5-c6, fusion plate and screws MASS EXCISION mass to back- ESOPHAGOGASTRODUODENOSCOPY 05/24/2024 - 05/23/2025 COLONOSCOPY 05/24/2016 - 05/23/2017 Medical History Medical History Date Comments GERD (gastroesophageal reflux disease) Hypertension Hyperlipidemia Social History Tobacco Use Types Packs/Day Years [...] on file 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 Gender Identity Not on file Sexual Orientation [...] 09/12/2024 2:40 PM CDT Plan of Treatment Health Maintenance Due Date Last Done Comments Colon Cancer Screening-Colonoscopy 1965 Depression Screening 1965 Hepatitis C Screening 1965 DTaP/Tdap/Td Vaccine (1 - Tdap) 1977 Hepatitis B Screening 02/29/1984 Regular Well Visit/Exam 18-64 02/29/1984 Zoster Vaccine (1 of 2) 02/29/2016 Covid-19 Vaccine (3 - 2023-2 5 season) 2024 04/22/2021, 08/01/2020 Influenza Vaccine (#1) 2025 03/10/2018 Prostate Cancer Screening-PSA 08/18/2026 08/18/2024 Pneumococcal vaccine <65 Aged Out No longer eligible based on patient's age to complete this topic Procedures Procedure Name Priority Date/Time Associated Diagnosis Comments BIOPSY PROSTATE - TRANSPERINEAL 10/20/2024 8:38 AM CDT Elevated PSA Case Notes 09/27@[facility]- office will find pt a new date [...] Biopsy) 10/20/2024 8:20 AM CDT Narrative PATHOLOGY [facility] - 10/24/2024 11:24 AM CDT EPIC results best viewed via link to PDF [facility] [place] [address] Note to Patients: This report may contain [...] Gender: Rosetta : 1965 (Age: 59) Address: [address] [place] [phone] Hospital #: [id number] Taken:10/20/2024 Received:10/20/2024 Reported: 10/24/2024 Patient Type: [facility] Service: Surgery Location: [facility] Physician(s): Jon Kaur DO Diagnosis: A. Prostate, [...] of interest, biopsy - Benign prostatic tissue nh/10/23/2024 07:46 By this signature, I attest that [...] Surgical Pathology and Flow Cytometry Departments at as part of an ongoing chief vendor quality program and in compliance with federally mandated [...] Surgical Pathology and Flow Cytometry Departments of . It has not been cleared or approved by the U. S. Food and Drug Administration. IMAGES AND SCANNED DOCUMENTS, IF INCLUDED, ONLY VIEWABLE IN PDF VERSION OF REPORT Marisol Hernandez MD LAB PATHOLOGY ORDERABLES Final R esult Performing Organization Address City/[facility]/ZIP Co de Phone Number PATHOLOGY [facility] 3rd Floor [place], [place] [phone] * (ABNORMAL) PSA screen (08/18/2024 7:59 AM [...] MD LAB BLOOD ORDERABLES Final Resul t Performing Organization Address City/[facility] Co de Phone Number [facility] [address] Department [place] [address] from Last 3 Months or Most Recently Relevant to Health Maintenance Insurance [facility] [id number] [facility] [id number] [facility] [id number] Member Subscriber Plan / Payer ( fective 2020-Present) Name:Anthony Eason Member ID:[id number] Relation to Subscriber:Self Name:Anthony Eason Subscriber ID:[id number] Payer ID:[id number] Type:[employer] HMO/PPO Address: [employer] CLAIMS [address] [place] [phone] Care Teams Property And Casualty Insurance Agent Relationship Specialty Start Date End Date Macrina Rosado DO PCP - General Family Medicine 07/24/21
[2024-12-26 19:21] LABS: Alanine Aminotransferase 18 U/L (6-50); Albumin Level 3.9 g/dL (3.5-5.1); Alkaline Phosphatase 110 U/L (38-126); Anion Gap 8 mmol/L (4-12); Aspartate Amino Transferase 51 U/L (17-59); Bilirubin,Total 0.8 mg/dL (0.2-1.3); Blood Urea Nitrogen 17 mg/dL (9-20); Calcium 9.0 mg/dL (8.4-10.2); Carbon Dioxide 26 mmol/L (22-30); Chloride 103 mmol/L (98-107); Cholesterol 170 mg/dL (0-200); Estimated Glomerular Filt Rate > 60; Glucose 71 mg/dL (65-110); HDL Direct 37 mg/dL; Potassium 4.2 mmol/L (3.4-5.0); Sodium 137 mmol/L (137-145); Total Protein 7.1 g/dL (6.3-8.2); Triglycerides 113 mg/dL (<150)
[2024-12-26 19:34] LABS: Hematocrit 49.2 % (42.0-52.0); Hemoglobin 15.3 g/dL (14.0-18.0); Mean Corpuscular HGB Conc 31.1 g/dl (32-36); Mean Corpuscular Hemoglobin 27.5 pg (26-34); Mean Corpuscular Volume 88.3 fl (80-100); Platelet Count Result 329 k/mm3 (150-375); Red Blood Count 5.57 M/mm3 (4.6-6.20); White Blood Count 4.9 K/mm3 (4.5-10.0)
[2024-12-26 20:06] LABS: Thyroid Stimulating Hormone 3.640 uIU/mL (0.465-4.680)
== END 2024-12-26 08:27 | disposition home or self-care (01) ==
LOC: ANHGOSHLAB 08:29
PROVIDERS: PCP Family Medicine; Visit Provider Family Medicine
DX: E78.2 Mixed hyperlipidemia (principal); I10 Essential (primary) hypertension; E66.9 Obesity, unspecified; Z68.33 Body mass index [BMI] 33.0-33.9, adult; Z79.899 Other long term (current) drug therapy
CPT/HCPCS: 36415; 80053; 80061; 84443; 85027